=== PATIENT | male | born 1935 | race Caucasian/White ===

== ENCOUNTER 2021-06-29 07:51 | Outpatient (RCR) | payer MEDICARE, SELFPAY | END 2021-07-27 14:29 | disposition home or self-care (01) | LOC: HO.WCC 07:51 | PROVIDERS: PCP Internal Medicine; Visit Provider Physician Assistant | DX: E11.622 Type 2 diabetes mellitus with other skin ulcer (principal); L89.329 Pressure ulcer of left buttock, unspecified stage; E11.51 Type 2 diabetes mellitus with diabetic peripheral angiopathy without gangrene; R60.0 Localized edema; E11.40 Type 2 diabetes mellitus with diabetic neuropathy, unspecified; I11.0 Hypertensive heart disease with heart failure; I50.9 Heart failure, unspecified; Z95.1 Presence of aortocoronary bypass graft | CPT/HCPCS: 97597; 99212; 99213 ==

== ENCOUNTER 2021-07-16 10:22 | Outpatient (REF) | payer MEDICARE, SELFPAY ==
[2021-07-16 10:55] LABS: MANUAL DIFF FLAG NO
[2021-07-16 11:48] LABS: Basophils Percent Auto 0.7 % (0-2); Eosinophils Absolute Auto 0.3 X10*3/uL (0.0-0.4); Hematocrit 40.2 % (42.0-52.0); Hemoglobin 13.4 g/dl (14.0-18.0); Imm Gran Abs Auto 0.01 X10*3/uL (0.00-0.03); Imm Gran Pct Auto 0.2 % (0.0-0.4); Lymphocytes Percent Auto 32.6 % (20-40); Mean Corpuscular HGB Conc 33.3 g/dl (31.0-36.0); Mean Corpuscular Hemoglobin 29.3 pg (27.0-33.0); Mean Corpuscular Volume 87.8 fL (80.0-98.0); Mean Platelet Volume 10.6 fL (9.4-12.4); Monocytes Absolute Auto 0.5 X10*3/uL (0.1-1.2); Monocytes Percent Auto 7.5 % (2-11); Neutrophils Absolute Auto 3.3 x10*3/uL (2.0-8.3); Platelet Count 187 X10*3/uL (160-400); Red Blood Count 4.58 X10*6/uL (4.60-5.80); Red Cell Distribution Width 13.2 % (11.0-16.0)
[2021-07-16 12:11] LABS: Anion Gap 16 (12-20); Blood Urea Nitrogen 9 mg/dL (9-16); Calcium 8.9 mg/dL (8.4-10.2); Carbon Dioxide 24 mmol/L (22-29); Chloride 102 mmol/L (96-108); Estimated Glomerular Filt Rate > 60; Glucose Random 112 mg/dL (60-115); Sodium 138 mmol/L (135-145)
== END 2021-07-16 10:23 | disposition home or self-care (01) ==
LOC: HO.LAB 10:22
PROVIDERS: PCP Internal Medicine; Visit Provider Internal Medicine
DX: R11.2 Nausea with vomiting, unspecified (principal); E11.51 Type 2 diabetes mellitus with diabetic peripheral angiopathy without gangrene
CPT/HCPCS: 36415; 80048; 85025